=== PATIENT | male | born 1945 | race Caucasian/White ===

== ENCOUNTER → 2019-10-08 | Outpatient (CLI) | payer MEDICARE, BC ==
--- NOTE | 2019-10-08 09:35 | RAD ---
EXAM DESCRIPTION: Ankle,Left 3 Views CLINICAL HISTORY: PAIN IN LEFT ANKLE AND JOINTS OF LEFT FOOT COMPARISON: None. IMPRESSION: 3 views of the left ankle show no acute fracture, focal bone destruction, or joint dislocation. Mild soft tissue swelling over the lateral malleolus is seen.. The ankle mortise appears maintained. Electronically signed by: Ryan Meng MD 10/08/2019 9:33 AM CDT
== END ==
LOC: RAD 08:37
PROVIDERS: ATTEND Orthopaedic Surgery
DX: M25.572 Pain in left ankle and joints of left foot (principal); M79.9 Soft tissue disorder, unspecified

== ENCOUNTER → 2020-07-12 | Outpatient (CLI) | payer MEDICARE, BC | LOC: GMA MATASK 10:56 | PROVIDERS: ATTEND Family Medicine | DX: Z12.5 Encounter for screening for malignant neoplasm of prostate (principal); I10 Essential (primary) hypertension; E78.5 Hyperlipidemia, unspecified | CPT/HCPCS: 84443; 84550; G0103 ==

== ENCOUNTER → 2020-07-25 | Outpatient (CLI) | payer MEDICARE, BC ==
--- NOTE | 2020-07-25 14:07 | CT ---
TECHNIQUE: Axial images of the lumbar spine were obtained with multiple reconstructions provided. This exam was performed according to our departmental dose-optimization program, which includes automated exposure control, adjustment of the mA and/or kV according to patient size and/or use of iterative reconstruction technique. CLINICAL HISTORY PROVIDED: SPONDYLOSIS, LUMBAR, WITH RADICULOPATHY COMPARISON: None available. FINDINGS: Five lumbar type vertebral bodies are present. L4-L5 segmentation failure. Alignment: Normal. No acute subluxation. Fracture: None present. Paraspinal Soft Tissues/ Retroperitoneum: No acute findings. L1/2: Disc space narrowing with endplate degenerative change and vacuum disc phenomenon. Diffuse symmetric disc bulge osteophyte complex. Mild left and moderate right neural foraminal narrowing. Mild central canal stenosis. Bilateral facet hypertrophy. L2/3: Disc space narrowing with endplate degenerative change and vacuum disc phenomenon. Diffuse symmetric disc bulge osteophyte complex. Moderate bilateral neural foraminal narrowing. Severe central canal stenosis. Bilateral facet hypertrophy with thickening of the ligamentum flavum. L3/4: Diffuse symmetric disc bulge. Mild right and moderate left neural foraminal narrowing. Mild central canal stenosis. Bilateral facet hypertrophy with thickening of the ligamentum flavum. L4/5: Segmentation failure with posterior ridging osteophytes resulting in moderate bilateral neural foraminal narrowing. Mild central canal stenosis. Bilateral facet hypertrophy. L5/S1: Posterior disc space narrowing. Small symmetric disc bulge osteophyte complex. Severe bilateral neural foraminal narrowing. No significant central canal stenosis. Bilateral facet hypertrophy. IMPRESSION: Multilevel lumbar spondylosis with central canal and neural foraminal narrowing as above. Electronically signed by: Venkat Vasquez MD 07/25/2020 2:06 PM [facility]
== END ==
LOC: CT 10:07
PROVIDERS: ATTEND Neurological Surgery
DX: M47.26 Other spondylosis with radiculopathy, lumbar region (principal); M48.061 Spinal stenosis, lumbar region without neurogenic claudication